=== PATIENT | female | born 1975 | race Caucasian/White ===

== ENCOUNTER 2021-06-15 12:18 | Emergency (ER) | payer OTHER, SELFPAY ==
[2021-06-15 12:25] VITALS: BP 109/67; PULSE 84; RESP 16; TEMP 38.4; O2SAT 99
--- NOTE | 2021-06-15 12:30 | ED.URI ---
HPI - URI/Sore Throat General Chief Complaint: Upper Respiratory Infection Stated Complaint: sore throat aches fever Time Seen by Provider: 06/15/21 12:30 Source: patient and family History of Present Illness HPI Narrative: Patient presents with a 2-day history of scratchy throat. No trouble swallowing and no drooling. Patient states 1 night ago she started with chills generalized body aches cough and nasal congestion patient did a COVID-[address] [facility] earlier which was negative. Patient states she is vaccinated with a [employer] Angel & [employer] shot. Related Data Home Medications Medication Instructions Recorded Confirmed No Home Medications 06/15/21 06/15/21 Allergies Allergy/AdvReac Type Severity Reaction Status Date / Time No Known Allergies Allergy Verified 06/15/21 12:46 Review of Systems Review of Systems: CONSTITUTIONAL: Denies chills, or sweats. Reports fever and generalized body aches EYES: Denies visual changes, redness, or discharge. ENT: Denies otalgia. Reports nasal congestion runny nose and sore throat CARDIOVASCULAR: Denies chest pain, palpitations, or edema. RESPIRATORY: Denies dyspnea. Reports occasional cough GASTROINTESTINAL: Denies abdominal pain, nausea, vomiting, or diarrhea. GENITOURINARY: Denies dysuria or hematuria. SKIN: Denies rash or itching. MUSCULOSKELETAL: Denies back pain, joint pain, or myalgia. Reports generalized body aches NEUROLOGIC: Denies headache, numbness, or weakness. PSYCHIATRIC: Denies anxiety or depression. PMFSH Comments At time of signature, agree with nursing past medical, surgical, social and family history. There is no relevant family history pertinent to the presenting complaint Exam Narrative: The patient is a well-developed, well-nourished in no acute distress. SKIN: Skin is warm and dry without erythema, swelling or exudate. There is good turgor. No tenting. HEAD: Atraumatic. Normocephalic. No temporal or scalp tenderness. EYES: Moist and bright. Sclera and conjunctivae normal. No discharge. PERRLA. Extraocular motions intact. Gross visual acuity intact. EARS: Pinna is normal shape and contour. Clear external auditory canals. TM pearly meredith with good cone of light, no erythema or suppuration. Bilateral cerumen noted no gross hearing deficit. NOSE: pink, moist mucosa with good air movement. Clear rhinorrhea without nasal flaring. Septum midline. Mouth: moist mucous membranes. THROAT; mild erythema noted to posterior oropharynx with moderate postnasal drainage. Without exudate or ulceration.. Uvula midline. Normal movement of soft palate. NECK: Supple and nontender with full range of motion without discomfort. No meningeal signs. LUNGS: Equal and bilateral breath sounds without wheezes, rales or rhonchi. CHEST: The chest wall is without retractions or use of accessory muscles. HEART: Has a regular rate and rhythm without murmur, gallops, click or rub. ABDOMEN: Soft, nontender with positive active bowel sounds. No rebound tenderness. EXTREMITIES: Without cyanosis, clubbing or edema. Equal 2+ distal pulses and 2 second capillary refill noted. NEUROLOGIC: alert, active, . The patient moves all extremities with normal muscle strength. Normal muscle tone is noted. Normal coordination is noted. NO focal neurological findings noted. Course Course Level of Care: Express Care Visit Vital Signs Vital signs: Vital Signs Temperature 38.4 C H 06/15/21 12:25 Pulse Rate 84 06/15/21 12:25 Respiratory Rate 16 06/15/21 12:25 Blood Pressure 109/67 06/15/21 12:25 Pulse Oximetry 99 06/15/21 12:25 Temperature 38.4 C H 06/15/21 12:25 Pulse Rate 84 06/15/21 12:25 Respiratory Rate 16 06/15/21 12:25 Blood Pressure 109/67 06/15/21 12:25 Pulse Oximetry 99 06/15/21 12:25 Critical dx considered and discussed with pt. Educated patient on red flag s/s and to go to ED if s/s occur. Discussed with pt when to return to Express Care or primary care provider. Candy
[2021-06-16 13:54] LABS: SARS-CoV-2 RNA PCR Positive
== END 2021-06-15 13:10 | disposition home or self-care (01) ==
PROVIDERS: Emergency Provider Nurse Practitioner Family
DX: U07.1 COVID-19 (principal)
CPT/HCPCS: 87081; 87804; 87880; 99213; C9803; G0463; U0003; U0005

== ENCOUNTER 2022-10-27 16:34 | Emergency (ER) | payer OTHER, SELFPAY ==
[2022-10-27 16:40] VITALS: BP 122/86; PULSE 100; RESP 18; TEMP 37.5; O2SAT 98
--- NOTE | 2022-10-27 17:01 | ED.URI ---
HPI - URI/Sore Throat General Chief Complaint: Upper Respiratory Infection Stated Complaint: Sore Throat Time Seen by Provider: 10/27/22 17:01 Source: patient Mode of arrival: ambulatory Limitations: no limitations History of Present Illness HPI Narrative: 47-year-old female presents with complaint of fatigue, headache, sore throat for 3 days. Reports pain getting progressively worse. States that she has swelling and white patches to her throat. No other complaints today. All systems reviewed and negative except as noted above. Related Data Allergies Allergy/AdvReac Type Severity Reaction Status Date / Time No Known Allergies Allergy Verified 06/15/21 12:46 Review of Systems Review of Systems: CONSTITUTIONAL: Denies fever, chills, or sweats. Reports fatigue. EYES: Denies visual changes, redness, or discharge. ENT: Denies rhinorrhea, congestion. Reports sore throat. Denies otalgia. CARDIOVASCULAR: Denies chest pain, palpitations, or edema. RESPIRATORY: Denies cough or dyspnea. GASTROINTESTINAL: Denies abdominal pain, nausea, vomiting, or diarrhea. GENITOURINARY: Denies dysuria or hematuria. SKIN: Denies rash or itching. MUSCULOSKELETAL: Denies back pain, joint pain, or myalgia. NEUROLOGIC: Denies headache, numbness, or weakness. PSYCHIATRIC: Denies anxiety or depression. All other systems reviewed are negative, except as documented in HPI. PMFSH Comments At time of signature, agree with nursing past medical, surgical, social and family history. There is no relevant family history pertinent to the presenting complaint. Exam Narrative: GENERAL: This is a well-nourished, well-developed patient, in no apparent distress. HEAD: normocephalic, atraumatic. EYES: PERRL. Sclera clear/white. Vision is grossly intact. EARS: External ears normal, auditory canals clear and without drainage, TMs normal without perforation. Hearing grossly intact. NOSE: External nose normal with no obvious nasal discharge, nares without redness, no rhinorrhea. THROAT: Mucous membranes moist, erythema and swelling to posterior pharynx, tonsils 1+ bilaterally with exudates. NECK: Neck supple, non-tender with cervical anterior lymphadenopathy. No masses or thyromegaly. CARDIOVASCULAR: Regular rate and rhythm without murmurs, gallops, or rubs. RESPIRATORY: Clear to auscultation. Breath sounds equal bilaterally. No wheezes, rales, or rhonchi. SKIN: warm, Dry, intact with no suspicious lesions or rash, good texture and turgor. NEURO: awake, alert, and oriented to person, place and time. There were no obvious focal neurologic abnormalities. EXTREMITIES: No joint tenderness, effusion, or edema noted. Course Course Level of Care: Express Care Visit Vital Signs Vital signs: Vital Signs Temperature 37.5 C 10/27/22 16:40 Pulse Rate 100 10/27/22 16:40 Respiratory Rate 18 10/27/22 16:40 Blood Pressure 122/86 10/27/22 16:40 Pulse Oximetry 98 10/27/22 16:40 Oxygen Delivery Room Air 10/27/22 16:40 Temperature 37.5 C 10/27/22 16:40 Pulse Rate 100 10/27/22 16:40 Respiratory Rate 18 10/27/22 16:40 Blood Pressure 122/86 10/27/22 16:40 Pulse Oximetry 98 10/27/22 16:40 Oxygen Delivery Room Air 10/27/22 16:40 Reviewed MDM - URI/Sore Throat MDM Narrative Medical decision making narrative: Patient is aware of diagnosis, understands and agrees to treatment plan. Anticipatory guidance given. Patient agrees to follow-up as directed and is aware of reasons to seek care at the emergency department. Portions of this record may have been created with voice recognition software Negative rapid strep. Will place patient on antibiotics due to his am findings. Differential Diagnosis Differential diagnosis: Likely pharyngitis Lab Data Labs: Strep Screen Presumptive Negative *(Reference Range: Negative)* Discharge Plan Discharge Clinical Impressi
== END 2022-10-27 17:11 | disposition home or self-care (01) ==
PROVIDERS: Emergency Provider Nurse Practitioner Family
DX: J03.90 Acute tonsillitis, unspecified (principal)
CPT/HCPCS: 87081; 87880; 99213; G0463

== ENCOUNTER 2023-02-23 16:50 | Emergency (ER) | payer OTHER, SELFPAY ==
[2023-02-23 16:56] VITALS: BP 141/79; PULSE 78; RESP 14; TEMP 36.8; O2SAT 98
--- NOTE | 2023-02-23 16:56 | ED.URI ---
HPI - URI/Sore Throat General Chief Complaint: Upper Respiratory Infection Stated Complaint: Congestion/Headache Source: patient and RN notes reviewed History of Present Illness HPI Narrative: 47 yo F presents to urgent care with complaints of cough and congestion x 10 days. Pt states it started out with a little congestion and runny nose. She states she was wheezing a few days and ran a few for a few days 1 week ago. Pt states her congestion and cough have not improved and she now has sinus pressure and MAHAJAN. Pt states her cough is much worse at nighttime when she lies down. Pt has been taking Tylenol PM at home. Related Data Allergies Allergy/AdvReac Type Severity Reaction Status Date / Time No Known Allergies Allergy Verified 02/23/23 17:06 Review of Systems Review of Systems: Pertinent positives and pertinent negatives per HPI. PMFSH Comments At the time of my signature, I reviewed and agree with the nursing past medical, surgical, social, and family history. There is no relevant family history pertinent to the patient complaint. Exam Narrative: GENERAL: This is a well-nourished, well-developed patient, in no apparent distress. HEAD: normocephalic, atraumatic. EYES: Sclera clear/white. Vision is grossly intact. EARS: External ears normal, auditory canals clear and without drainage, TMs normal without perforation. Hearing grossly intact. NOSE: congestion THROAT: Mucous membranes moist, posterior pharynx clear. NECK: Neck supple, non-tender without lymphadenopathy, masses or thyromegaly. CARDIOVASCULAR: Regular rate and rhythm without murmurs, gallops, or rubs. RESPIRATORY: Rhonchi and slight wheezes noted in bilateral lung weiner. pt coughing in clinic. SKIN: warm, intact with no suspicious lesions or rash, good texture and turgor. NEURO: awake, alert, and oriented to person, place and time. There were no obvious focal neurologic abnormalities. Course Course Level of Care: Express Care Visit Vital Signs Vital signs: Vital Signs Temperature 98.2 F 02/23/23 16:56 Pulse Rate 78 02/23/23 16:56 Respiratory Rate 14 02/23/23 16:56 Blood Pressure 141/79 H 02/23/23 16:56 Pulse Oximetry 98 02/23/23 16:56 Oxygen Delivery Room Air 02/23/23 16:56 Temperature 98.2 F 02/23/23 16:56 Pulse Rate 78 02/23/23 16:56 Respiratory Rate 14 02/23/23 16:56 Blood Pressure 141/79 H 02/23/23 16:56 Pulse Oximetry 98 02/23/23 16:56 Oxygen Delivery Room Air 02/23/23 16:56 Reviewed MDM - URI/Sore Throat MDM Narrative Medical decision making narrative: Go to the ER for any new or worsening symptoms. Avoid smoking/second-hand smoke. Continue to take Tylenol or Motrin for pain. Increase your Vitamin C intake. Use a humidifier or vaporizer at night. Take Medications as prescribed. Drink plenty of water. 8-10 glasses per day. Use flonase 2 times per day for 5 days then as needed Take mucinex 2 times per day and be sure to take with 8oz of water. Follow up with Primary provider if not getting better. Take steroids as directed. May use the inhaler every 4-6 hours as needed for coughing. Increase fluids at home. Avoid any and all smoke. May use a humidifier in the bedroom. Increase your Vitamin C. Follow-up with personal physician in 2-5 days. Differential Diagnosis Differential diagnosis: Likely sinusitis, viral infection and bronchitis Critical Care Time Critical Care Time Critical Care Time: No Discharge Plan Discharge Clinical Impression: Bronchitis Sinusitis Qualifiers: Sinusitis location: unspecified location Chronicity: unspecified Qualified Code(s): J32.9 - Chronic sinusitis, unspecified Patient Disposition: Home, Self-Care Condition: Stable Instructions: Antibiotic Form, Sinusitis (ED), Acute Bronchitis (ED) Additional Instructions: Go to the ER for any new or worsening symptoms. Avoid smoking/second-hand smoke. Continue to take Tylenol or Mot
== END 2023-02-23 17:14 | disposition home or self-care (01) ==
PROVIDERS: Emergency Provider Nurse Practitioner Family
DX: J40 Bronchitis, not specified as acute or chronic (principal); J32.9 Chronic sinusitis, unspecified
CPT/HCPCS: 99213; G0463